=== PATIENT | female | born 1955 | race Asian ===

== ENCOUNTER 2018-12-16 13:22 | Emergency (ER) | payer OTHER ==
[2018-12-16] MEDS ORDERED: LET GEL TOPICAL 1 EA SYR TP ONE ×2 (13:27→13:28)
[2018-12-16] MEDS ORDERED: TRANEXAMIC ACID 1,000 MG/10 ML VIAL TP ONE (13:27)
[2018-12-16] MEDS ORDERED: LABETALOL HCL 5 MG/ML 20 ML MDV ONE (13:28)
--- NOTE | 2018-12-16 13:29 | EDPHY ---
H & P Source: Patient, RN/MD, EMS Exam Limitations: No limitations - Personal History Tetanus Vaccine Date: < 10 YEARS Time Seen by Provider: 12/16/18 13:25 HPI/ROS: HPI: This is a 63-year-old female who presents with Chief Complaint: Epistaxis Location: Right nostril Quality: Bleeding Duration: 5 hr Signs and Symptoms: no fever, no nausea, no vomiting, no photophobia, no noise sensitivity, no neck stiffness, no ear pain, no tinnitus, no nasal congestion, no sinus pressure, no weakness, no radiation, no aura Timing: Severity: Context: Patient presents via EMS with complaints of right-sided nose bleed that started around 9:00 a.m. While she was making bread. EMS was on scene and noted large amounts of blood and clots. The bleeding appears to be coming from the right nostril. No history of trauma and does not take blood thinners. Patient given 250 cc of normal saline and IV Zofran 4 mg. Modifying Factors: EMS applied nose clip with cessation of bleeding Comment: ROS: A comprehensive 10 system review of systems is otherwise negative aside from elements mentioned in the history of present illness. MEDICAL/SURGICAL/SOCIAL HISTORY: Medical history: Generally healthy. Does not take any regular medications. Surgical history: Denies Social history: Denies alcohol, tobacco, drug use. Family history noncontributory. CONSTITUTIONAL: Elderly female who is polite and cooperative, awake and alert, no obvious distress HEENT: Atraumatic and normocephalic, PERRL, EOMI. Wears glasses. Nares patent ; no rhinorrhea; right nostril shows dried blood but no active bleeding site; left nostril clear; no nasal mucosal edema. Tympanic membranes clear. Oropharynx clear, post pharyngeal blood noted, no exudate and moist pink mucosa. Airway patent. No lymphadenopathy. No meningismus. Cardiovascular: Normal S1/S2, regular rate, regular rhythm, without murmur rub or gallop. PULMONARY/CHEST: Symmetrical and nontender. Clear to auscultation bilaterally. Good air movement. No accessory muscle usage. ABDOMEN: Soft, nondistended, nontender, no rebound, no guarding, no peritoneal signs, no masses or organomegaly. No CVAT. EXTREMITIES: 2/2 pulses, strength 5/5, no deformities, no clubbing, no cyanosis or edema. NEUROLOGICAL: no focal neuro deficits. GCS 15. SKIN: Warm and dry, no erythema. no rash. Good capillary refill. (Luisa Beaulieu) Constitutional: Initial Vital Signs Temperature (C) 35.6 C L 12/16/18 13:32 Heart Rate 54 L 12/16/18 13:32 Respiratory Rate 16 12/16/18 13:32 Blood Pressure 158/97 H 12/16/18 13:32 O2 Sat (%) 100 12/16/18 13:32 O2 Delivery Mode Room Air Allergies/Adverse Reactions: cephalexin monohydrate [From Keflex] Allergy (Verified 12/16/18 13:37) Penicillins Allergy (Verified 12/16/18 13:37) Home Medications: Medication Instructions Recorded Miscellaneous Medical Supply [NO 1 ea [facility] [place]/20[place]12 [facility] MEDS] Ondansetron Odt [Zofran Odt 4 mg 4 mg PO Q4 PRN #12 tab 12/16/18 (*)] Medical Decision Making Procedures: Procedure: Epistaxis control. After verbal consent was obtained, the patient was anesthetized with LET topical. The right anterior epistaxis was identified. The patient was treated with merocel soaked with TXA. Following the procedure the patient was re- examined and the bleeding was well controlled. The patient tolerated the procedure well. The procedure was performed by myself. (Luisa Beaulieu) ED Course/Re-evaluation: I have evaluated and participated in the management of this patient. My co- signature indicates that I have reviewed this chart and that I agree with the findings and the plan of care as documented. My personal history and physical findings include: I became involved with this patient when she complained of lightheadedness, nausea, and was noted to be hypotensive. At that point she had a TXA soaked Merocel packing in place in the right nare; no bleeding. She was awake and alert at the time of my evaluation. Systolic blood pressure was around 70 with heart rate in the 50s. Her head was lowered and a L of IV fluid was initiated. Her blood pressure responded well to these measures. She continued with some nausea, which ultimately subsided. There was no loss of consciousness. She had no further epistaxis and was able to be discharged home. (Kelly Carter) Vital signs reviewed and stable upon arrival. Placed on pvc monitor. No active epistaxis with nose clip. I removed the nose clip and placed LET topical gauze packing Merocel packing soaked in TXA placed in to right nare Given IV Zofran 4 mg due to complaints of nausea 1500: Road test patient complained of dizziness and almost vomited. Placed on pvc monitor. Given 1 L normal saline and IV promethazine 6.25 mg. Cessation of bleeding remains. 1530: End of shift. Signed over to Dr. Carter pending passing road test and I suspect being able to be discharged home. This patient was seen under the supervision of my secondary supervising physician. I evaluated and cared for this patient with attending who examined the patient. (Luisa Beaulieu) Differential Diagnosis: Differential diagnosis includes but is not limited to nasal mucosa dryness, coagulopathy, trauma, malignancy. (Luisa Beaulieu) - Data Points Medications Given: Discontinued Medications Sodium Chloride (Ns) 1,000 mls @ 0 mls/hr IV EDNOW ONE; Wide Open PRN Reason: Protocol Stop: 12/16/18 15:06 Last Admin: 12/16/18 15:26 Dose: 1,000 mls Ondansetron HCl (Zofran) 4 mg IVP EDNOW ONE Stop: 12/16/18 13:57 Last Admin: 12/16/18 14:17 Dose: 4 mg Promethazine HCl (Phenergan) 6.25 mg IVP ONCE ONE Stop: 12/16/18 15:06 Last Admin: 12/16/18 15:20 Dose: Not Given Tetracaine/Epinephrine/Lidocaine (Let Gel Topical) 1 ea TP ONCE ONE Stop: 12/16/18 13:28 Last Admin: 12/16/18 14:18 Dose: 1 ea Tranexamic Acid (Cyklokapron) 500 mg TP EDNOW ONE Stop: 12/16/18 13:28 Last Admin: 12/16/18 14:18 Dose: 500 mg Departure - Departure Disposition: Home, Routine, Self-Care Clinical Impression: Mild epistaxis Condition: Good Instructions: Nosebleed (ED), Diet for Stomach Ulcers and Gastritis (ED) Additional Instructions: Consume a minimum of 8-10 glasses of water or electrolyte fluid replacement drinks that include Gatorade, Powerade, Pedialyte. Eat a bland diet for the next 24 hr and slowly advance as tolerated. Take Zofran every 4-6 hours as needed for nausea, vomiting. Please avoid any strenuous activity until the packing is removed. Avoid digital manipulation, sneezing or blowing of nose until seen for follow- up. Please return to the emergency room in 48-72 hours to have your packing removed. Follow-up with ear nose and throat in 5-7 days. Referrals: Patient,NotPresent [Unknown] - As per Instructions Joann Navarro MD [Medical Doctor] - As per Instructions Prescriptions: Ondansetron Odt [Zofran Odt 4 mg (*)] 4 mg PO Q4 PRN #12 tab PRN Reason: Nausea/Vomiting, Use 1st
[2018-12-16] MEDS ORDERED: ONDANSETRON 4 MG/2 ML VIAL IVP ONE (13:56)
[2018-12-16] MEDS ORDERED: PROMETHAZINE HCL 25 MG/ML INJ IVP ONE (15:05)
[2018-12-16] MEDS ORDERED: NS 1,000 ML IV ONE (15:05)
[2018-12-16] MEDS ORDERED: PROMETHAZINE HCL 25 MG/ML INJ ONE (15:06)
[2018-12-16 17:46] VITALS: BP 104/73
== END 2018-12-16 17:55 | disposition home or self-care (01) ==
LOC: EDUNIT#
PROC: 2Y41X5Z Packing of Nasal Region using Packing Material (ICD-10-PCS; principal; 2018-12-16)
DX: R04.0 Epistaxis (principal); E86.9 Volume depletion, unspecified
CPT/HCPCS: 96374; J2405; J2550